=== PATIENT | male | born 1990 | race Caucasian/White ===

== ENCOUNTER 2022-04-04 15:20 | Emergency (ER) | payer OTHER, SELFPAY ==
--- NOTE | ~2022-04-04 | CT_ITS ---
EXAMINATION: CT abdomen pelvis w con DATE: 04/04/2022 16:26 INDICATION: Right lower quadrant pain TECHNIQUE: Computed tomography (CT) of the abdomen and pelvis was performed with 100 mL Omnipaque-350 intravenous contrast. Automated exposure control and iterative reconstruction technique were employe d. The dose-length product was 709.42 mGy-cm. COMPARISON: None. FINDINGS: Respiratory motion limits evaluation of the lower abdomen. Lower thorax: Unremarkable Liver: Normal. Biliary/Gallbladder: Gallbladder is normal. No bile duct dilation. Pancreas: No mass or duct dilation. Spleen: Normal. Adrenals:No mass. Kidneys: No mass, stone, or hydronephrosis. GI tract: No small or large bowel dilation. Normal appendix. Mesentery/Peritoneum: No ascites, mass, or free air. Retroperitoneum: No mass. Pelvis: Pelvic organs are within normal limits. Soft Tissues: Soft tissues and body wall unremarkable. Bones: No acute osseous finding. IMPRESSION: Motion limited examination. Within that constraint, no definite acute abdominopelvic process is detec kirt. Reviewed, dictated and finalized at location K. INSTRUCTOR IMPRESSION: Motion limited examination. Within that constraint, no definite acute abdominop elvic process is detected.
[2022-04-04 15:24] VITALS: BP 152/88; PULSE 95; RESP 16; TEMP 36.5; O2SAT 100
--- NOTE | 2022-04-04 15:30 | PC.NURSE ---
pt verbalizes he is not currently taking his prescribed invega, hydroxizine, or prazosin d/t adverse reactions.
[2022-04-04 15:39] LABS: Basophils Percent Auto 0.4 % (0.2-1.2); Eosinophils Absolute Auto 0.4 K/mm3 (0-0.3); Eosinophils Percent Auto 5.8 % (0-4.4); Hematocrit 40.1 % (42.0-52.0); Hemoglobin 13.8 g/dL (14.0-18.0); Immature Granulocyte Absolute 0.01 K/mm3 (0.00-0.031); Immature Granulocyte Percent A 0.1 % (0-0.5); Lymphocytes Absolute Auto 1.61 K/mm3 (0.9-3.2); Lymphocytes Percent Auto 21.8 % (18.3-44.2); Mean Corpuscular HGB Conc 34.4 g/dl (32-36); Mean Corpuscular Hemoglobin 31.6 pg (26-34); Mean Corpuscular Volume 91.8 fl (80-100); Mean Platelet Volume 8.6 fl (7.4-10.4); Monocytes Absolute Auto 1.2 K/mm3 (0.1-0.6); Monocytes Percent Auto 16.2 % (2.6-8.5); Neutrophils Absolute Auto 4.1 K/mm3 (1.3-6.7); Neutrophils Percent Auto 55.7 % (45.5-73.1); Platelet Count Result 255 k/mm3 (150-375); Red Blood Count 4.37 M/mm3 (4.6-6.20); Red Cell Distribution Width 12.3 % (11.5-14.5); White Blood Count 7.4 K/mm3 (4.5-10.0)
--- NOTE | 2022-04-04 15:51 | ED.ABDPAIN ---
HPI - Abdominal Pain General Chief Complaint: Abdominal Pain Stated Complaint: ?liver failure s/sx Time Seen by Provider: 04/04/22 15:50 Source: patient History of Present Illness HPI narrative: 32 years old white male presented to the ED by ambulance complaining of right abdominal pain for the last 2 weeks, also trouble urinating for the last 1 week. He denies any fever, chills, nausea, vomiting history of hep C, since March 2021, did not get any treatment and he did not follow because of his drug addiction. Now he feels like he need to be treated. Related Data Home Medications Medication Instructions Recorded Confirmed No Home Medications 04/27/19 04/27/19 Allergies Allergy/AdvReac Type Severity Reaction Status Date / Time ciprofloxacin Allergy Unknown Unknown Verified 04/04/22 15:29 metronidazole Allergy Unknown Unknown Verified 04/04/22 15:29 Review of Systems Review of Systems: All systems reviewed & are unremarkable except as noted in HPI and below PMFSH Social History Social History Gender identity (if verbalized by the patient): Male Exam Narrative: General appearance: Well-developed, well-nourished Skin: Normal color Head: Normocephalic, nontraumatic Eyes: Clear conjunctiva ENT: Oropharynx normal, ears normal, nose normal Neck: Supple, nontender Chest and respiratory: Airway patent, no respiratory distress, no accessory muscle use Heart: Regular rate/rhythm Abdomen: Soft, diffuse abdominal tenderness , mainly right upper quadrant, no organomegaly, quiet bowel sounds Vascular: Normal peripheral pulses, normal capillary refill. Neurologic: Alert and oriented ?3, [employer] is normal as tested, no gross motor deficit Course Course Emergency Course: Work-up showed elevated liver enzymes which high likely secondary to hepatitis C. Also hematuria of unknown etiology at this time. Vital Signs Vital signs: Vital Signs Temperature 36.5 C 04/04/22 15:24 Pulse Rate 95 04/04/22 15:24 Respiratory Rate 16 04/04/22 15:24 Blood Pressure 152/88 H 04/04/22 15:24 Pulse Oximetry 100 04/04/22 15:24 Oxygen Delivery Room Air 04/04/22 15:24 Temperature 36.5 C 04/04/22 15:24 Pulse Rate 95 04/04/22 15:24 Respiratory Rate 16 04/04/22 15:24 Blood Pressure 152/88 H 04/04/22 15:24 Pulse Oximetry 100 04/04/22 15:24 Oxygen Delivery Room Air 04/04/22 15:24 MDM - Abdominal Pain Differential Diagnosis Differential diagnosis: Likely acute appendicitis, calculus of kidney, constipation, diverticulitis and pancreatitis Lab Data 04/04/22 15:34 04/04/22 15:34 Labs: Lab Results 04/04/22 04/04/22 04/04/22 Range/Units 15:34 15:34 15:34 WBC 7.4 (4.5-10.0) K/mm3 RBC 4.37 L (4.6-6.20) M/mm3 Hgb 13.8 L D (14.0-18.0) g/dL Hct 40.1 L (42.0-52.0) % MCV 91.8 (80-100) fl MCH 31.6 (26-34) pg MCHC 34.4 (32-36) g/dl RDW 12.3 (11.5-14.5) % Plt Count 255 (150-375) k/mm3 MPV 8.6 (7.4-10.4) fl Immature Gran % (Auto) 0.1 (0-0.5) % Neut % (Auto) 55.7 (45.5-73.1) % Lymph % (Auto) 21.8 (18.3-44.2) % [place] % (Auto) 16.2 H (2.6-8.5) % Eos % (Auto) 5.8 H (0-4.4) % Baso % (Auto) 0.4 (0.2-1.2) % Lymph # (Auto) 1.61 (0.9-3.2) K/mm3 [place] # (Auto) 1.2 H (0.1-0.6) K/mm3 Eos # (Auto) 0.4 H (0-0.3) K/mm3 Baso # (Auto) 0.0 (0.0-0.1) K/mm3 Abs Immat Gran (auto) 0.01 (0.00-0.031) K/mm3 Absolute Neuts (auto) 4.1 (1.3-6.7) K/mm3 Absolute Nucleated RBC 0.0 (0.0-0.012) K/mm3 Nucleated RBC % 0.0 (0.0-0.2) % Sodium 136 L (137-145)
[2022-04-04 15:53] LABS: Albumin Level 4.5 g/dL (3.5-5.1); Alkaline Phosphatase 103 U/L (38-126); Anion Gap 8 mmol/L (8-16); Aspartate Amino Transferase 505 U/L (17-59); Bilirubin,Total 1.7 mg/dL (0.2-1.3); Blood Urea Nitrogen 19 mg/dL (9-20); Calcium 8.7 mg/dL (8.4-10.2); Carbon Dioxide 25 mmol/L (22-30); Chloride 103 mmol/L (98-107); Estimated CRCL calculation 127 ml/min; Estimated Glomerular Filt Rate > 60; Glucose 81 mg/dL (65-110); Lipase 72 U/L (23-300); Potassium 3.9 mmol/L (3.4-5.0); Sodium 136 mmol/L (137-145)
[2022-04-04] MEDS: SODIUM CHLORIDE 0.9% IV 1,000 ML 999 ML IV CONT (15:59)
--- NOTE | 2022-04-04 16:00 | PC.NURSE ---
Patient reports that he only urinates one time per day and is throwing a fit that he was asked for a urine sample. Patient refusing straight cath and reporting that he hates all hospitals.
[2022-04-04 16:34] LABS: Alanine Aminotransferase 1106 U/L (6-50)
--- NOTE | 2022-04-04 17:44 | PC.NURSE ---
patient and patient's girlfriend found to be in the bed at this time sleeping. Patient asked again to attempt to provide a urine sample, again throwing a fit that this would be asked of him. patient then educated that we are running tests to determine where his pain could be coming from and that the EDP would like a urine sample.
[2022-04-04 18:22] LABS: Appearance Urine Slightly Cloudy (Clear); Bilirubin Urine 1+ (Negative); Blood Urine 2+ (Negative); Color Urine Amber (Yellow); Glucose Urine UA Negative (Negative); Ketones Urine 1+ mg/dL (Negative); Leukocyte Esterase Ur Negative LEU/UL (Negative); Nitrate Urine Negative (Negative); Protein Urine 1+ mg/dL (Negative); Specific Grav Ur 1.025 (1.001-1.035); Urobilinogen Urine >=8.0 mg/dL (<2.0)
[2022-04-04 18:28] LABS: Bacteria Urine Trace /hpf; Mucus Urine Rare /lpf; RBC Urine >75 /hpf (0-2)
[2022-04-04 18:39] LABS: Add Urine Microscopic? YES
[2022-04-04 18:49] LABS: Barbiturate Screen Urine Negative (Negative); Benzodiazepines Screen Urine Negative (Negative); Cannabinoid Screen Urine Positive (Negative); Cocaine Screen Urine Negative (Negative); Methadone Screen Urine Negative (Negative); Opiate Screen Urine Negative (Negative); Phencyclidine Screen Urine Negative (Negative)
[2022-04-04 19:14] LABS: Amphetamine Screen Urine Positive (Negative)
--- NOTE | 2022-04-04 19:28 | PC.NURSE ---
Patient was informed of visiting hours of the hospital and was unhappy that his couldnt come to the floor when Patient got a bed. I explained to patient that his visitor could stay in the ER until that time and patient states If she cant come with me, im not staying . This RN informed patient of risks of leaving against medical advice and he states this hospital has gone to the medical centert . I informed provider of patient not wanting to get admitted due to his not being able to come to the floor with him. Patient signed AMA form and verbalized understanding of leaving. Patient states Im just leaving to go to another hospital .
[2022-04-04 19:37] LABS: Influenza A QL RT-PCR Negative (Negative); Influenza B QL RT-PCR Negative (Negative); RSV RNA, RT-PCR Negative (Negative); SARS-CoV-2 RNA PCR Negative
[2022-04-04 20:00] LABS: Hepatitis B Surface Antigen Negative (Negative)
[2022-04-04 20:06] LABS: HAV RESULT Negative (Negative); Hepatitis B Core IgM Result Negative (Negative)
[2022-04-04 20:19] LABS: Hepatitis C Virus Antibody Reactive (Negative)
[2022-04-07 15:52] LABS: Hepatitis C RNA, Quant PCR 1280000 IU/mL
== END 2022-04-04 19:33 | disposition left against medical advice (07) ==
PROVIDERS: Emergency Medicine; Emergency Provider Emergency Medicine; PCP Nurse Practitioner
DX: B19.20 Unspecified viral hepatitis C without hepatic coma (principal); R31.9 Hematuria, unspecified; R74.01 Elevation of levels of liver transaminase levels; Z20.822 Contact with and (suspected) exposure to COVID-19
CPT/HCPCS: 36415; 74177; 80053; 80074; 80307; 81001; 83605; 83690; 85025; 86803; 87522; 87637; 96360; 99284; J7030; Q9967

== ENCOUNTER 2022-10-17 21:11 | Emergency (ER) | payer OTHER, SELFPAY ==
[2022-10-17 21:15] VITALS: BP 161/79; PULSE 73; RESP 15; O2SAT 99
[2022-10-17 23:14] LABS: Basophils Percent Auto 0.5 % (0.2-1.2); Eosinophils Absolute Auto 0.7 K/mm3 (0-0.3); Eosinophils Percent Auto 11.1 % (0-4.4); Hematocrit 41.4 % (42.0-52.0); Hemoglobin 14.1 g/dL (14.0-18.0); Immature Granulocyte Absolute 0.02 K/mm3 (0.00-0.031); Immature Granulocyte Percent A 0.3 % (0-0.5); Lymphocytes Absolute Auto 2.26 K/mm3 (0.9-3.2); Mean Corpuscular HGB Conc 34.1 g/dl (32-36); Mean Corpuscular Hemoglobin 31.3 pg (26-34); Mean Corpuscular Volume 91.8 fl (80-100); Mean Platelet Volume 8.8 fl (7.4-10.4); Monocytes Absolute Auto 0.7 K/mm3 (0.1-0.6); Monocytes Percent Auto 10.4 % (2.6-8.5); Neutrophils Absolute Auto 2.6 K/mm3 (1.3-6.7); Neutrophils Percent Auto 41.7 % (45.5-73.1); Platelet Count Result 232 k/mm3 (150-375); Red Blood Count 4.51 M/mm3 (4.6-6.20); Red Cell Distribution Width 12.3 % (11.5-14.5); White Blood Count 6.3 K/mm3 (4.5-10.0)
[2022-10-17 23:24] LABS: Acetaminophen < 10 ug/mL (10-30); Ethanol < 10 mg/dL (<10); Salicylate < 1.0 mg/dL (2-20)
[2022-10-17 23:25] LABS: Alanine Aminotransferase 54 U/L (6-50); Albumin Level 3.3 g/dL (3.5-5.1); Alkaline Phosphatase 63 U/L (38-126); Anion Gap 2 mmol/L (8-16); Aspartate Amino Transferase 41 U/L (17-59); Bilirubin,Total 0.3 mg/dL (0.2-1.3); Blood Urea Nitrogen 10 mg/dL (9-20); Calcium 8.1 mg/dL (8.4-10.2); Carbon Dioxide 27 mmol/L (22-30); Chloride 110 mmol/L (98-107); Estimated Glomerular Filt Rate > 60; Glucose 107 mg/dL (65-110); Potassium 3.8 mmol/L (3.4-5.0); Sodium 139 mmol/L (137-145)
[2022-10-18 00:11] LABS: Appearance Urine Clear (Clear); Bilirubin Urine Negative (Negative); Blood Urine Negative (Negative); Color Urine Yellow (Yellow); Glucose Urine UA Negative (Negative); Ketones Urine Negative (Negative); Leukocyte Esterase Ur Negative LEU/UL (Negative); Nitrate Urine Negative (Negative); Protein Urine Negative (Negative); Specific Grav Ur 1.017 (1.001-1.035)
--- NOTE | 2022-10-18 00:14 | ED.GENADULT ---
HPI - General Adult General Chief complaint: Psychiatric Symptoms <Luis Montano MD - Last Filed: 10/18/22 07:29> Stated complaint: DOES NOT FEEL SAFE <Luis Montano MD - Last Filed: 10/18/22 07:29> Time Seen by Provider: 10/17/22 22:07 <Luis Montano MD - Last Filed: 10/18/22 07:29> History of Present Illness HPI narrative: This is a 32-year-old schizophrenic with a methamphetamine use disorder presenting to ED for psychiatric evaluation. Patient states that he does not feel safe. He is feels that he is being threatened by old friends, family and people that he does not even know. His mother is telling him that it is all in his head. The patient is continuing to use IV methamphetamines. Patient is denying homicidal/suicidal Ideations or hallucinations. he is not compliant with his psych medications. He denies any physical complaints at this time. <Luis Montano MD - Last Filed: 10/18/22 07:29> Related Data Home medications: Home Medications Medication Instructions Recorded Confirmed No Home Medications 04/27/19 1219 <Luis Montano MD - Last Filed: 10/18/22 07:29> Allergies/adverse reactions: Allergies Allergy/AdvReac Type Severity Reaction Status Date / Time ciprofloxacin Allergy Unknown Unknown Verified 1204 15:29 metronidazole Allergy Unknown Unknown Verified 04/04/22 15:29 <Luis Montano MD - Last Filed: 10/18/22 07:29> [facility] Past Medical History Medical History: Medical History Methamphetamine abuse Schizophrenia <Luis Montano MD - Last Filed: 10/18/22 07:29> Social History Social History: Social History Substance use type: amphetamines and methamphetamine Gender identity (if verbalized by the patient): Male <Luis Montano MD - Last Filed: 10/18/22 07:29> Exam Narrative: APPEARANCE: No apparent distress. Head: atraumatic. EYES: EOMI, NOSE: Atraumatic NECK: Trachea midline RESPIRATORY: No increased rate of breathing , clear to auscultation CARDIOVASCULAR: RRR, ABDOMINAL: Non-distended MUSCULOSKELETAl: No obvious deformities NEURO: Alert. Moving 4/4 extremities SKIN:: Warm, dry. Normal color PSYCHIATRIC: Normal affect <Luis Montano MD - Last Filed: 10/18/22 07:29> Course Course Emergency Course: Patient resting comfortably. Reevaluated by crisis. Contracted for safety. Discharge home. <Graham Cornelius MD - Last Filed: 10/18/22 10:13> Vital Signs Vital signs: Vital Signs Pulse Rate 73 10/17/22 21:15 Respiratory Rate 15 10/17/22 21:15 Blood Pressure 161/79 H 10/17/22 21:15 Pulse Oximetry 99 10/17/22 21:15 Oxygen Delivery Room Air 10/17/22 21:15 Pulse Rate 71 10/18/22 09:14 Respiratory Rate 14 10/18/22 09:14 Blood Pressure 129/77 10/18/22 09:14 Pulse Oximetry 100 10/18/22 09:14 Oxygen Delivery Room Air 10/17/22 21:15 <Luis Montano MD - Last Filed: 10/18/22 07:29> Vital Signs Pulse Rate 73 10/17/22 21:15 Respiratory Rate 15 10/17/22 21:15 Blood Pressure 161/79 H 10/17/22 21:15 Pulse Oximetry 99 10/17/22 21:15 Oxygen Delivery Room Air 10/17/22 21:15 Pulse Rate 71 10/18/22 09:14 Respiratory Rate 14 10/18/22 09:14 Blood Pressure 129/77 10/18/22 09:14 Pulse Oximetry 100 10/18/22 09:14 Oxygen Delivery Room Air 10/17/22 21:15 <Graham Cornelius MD - Last Filed: 10/18/22 10:13> Medical Decision Making MDM Narrative Medical decision making narrative: -Presentation: 32-year-old male with schizophrenia and methamphetamine use disorder presenting with paranoid delusions. -DDX includes but is not limited to: Schizophrenia, substance use disorder -Co-morbidities complicating care: schizophrenia, methamphetamine use -Social determinants of health: unemployed -External
[2022-10-18 00:22] LABS: Add Urine Microscopic? NO
[2022-10-18 00:33] LABS: Barbiturate Screen Urine Negative (Negative); Benzodiazepines Screen Urine Negative (Negative)
[2022-10-18 00:35] LABS: Cannabinoid Screen Urine Negative (Negative); Cocaine Screen Urine Negative (Negative); Methadone Screen Urine Negative (Negative); Opiate Screen Urine Negative (Negative); Phencyclidine Screen Urine Negative (Negative)
[2022-10-18 01:09] LABS: Amphetamine Screen Urine Positive (Negative)
[2022-10-18 01:19] LABS: Influenza A QL RT-PCR Negative (Negative); Influenza B QL RT-PCR Negative (Negative); RSV RNA, RT-PCR Negative (Negative); SARS-CoV-2 RNA PCR Negative (Negative)
--- NOTE | 2022-10-18 08:03 | PC.NURSE ---
Notified Crisis that patient had a change to Stone scale and is now mod risk. Crisis will be arriving in 90 minutes.
[2022-10-18 09:14] VITALS: BP 129/77; PULSE 71; RESP 14; O2SAT 100
== END 2022-10-18 10:29 | disposition home or self-care (01) ==
PROVIDERS: Emergency Provider Emergency Medicine; PCP Nurse Practitioner
DX: F20.9 Schizophrenia, unspecified (principal); F15.10 Other stimulant abuse, uncomplicated; Z20.822 Contact with and (suspected) exposure to COVID-19
CPT/HCPCS: 36415; 80053; 80307; 81003; 84443; 85025; 87637; 99284

== ENCOUNTER 2023-03-27 06:39 | Emergency (ER) | payer OTHER, SELFPAY ==
--- NOTE | ~2023-03-27 | CT_ITS ---
EXAMINATION: CT abdomen pelvis w con INDICATION: Right lower quadrant abdominal pain TECHNIQUE: Computed tomographic images of the abdomen and pelvis were obtained after the administrati on of 100 cc of Omnipaque 350 intravenous contrast. The dose-length product (DLP) was 1434.90 mGy-cm. Automated exposure control and iterative reconstruction technique were employed. COMPARISON: 04/04/2022 FINDINGS: Minimal dependent atelectasis is present in the lung bases. The heart size is normal. Mild bilateral gynecomastia is noted. The liver, spleen, pancreas, gallbladder, and adrenal glands are nor mal. The kidneys are unremarkable. No pathologically enlarged abdominal or pelvic lymph nodes are pedro ntified. No free intraperitoneal gas or evidence of bowel obstruction. There is mild wall thickening of the colon from the hepatic flexure through the sigmoid colon. The visualized osseous structures ar e unremarkable. IMPRESSION: 1. Mild colitis from the hepatic flexure through the sigmoid colon. Reviewed, dictated and finalized at location F. I[employer] LABORER
[2023-03-27 06:40] VITALS: BP 131/78; PULSE 48; RESP 14; TEMP 36.7; O2SAT 100
[2023-03-27 07:40] LABS: Basophils Percent Auto 0.5 % (0.2-1.2); Eosinophils Absolute Auto 0.6 K/mm3 (0-0.3); Eosinophils Percent Auto 7.5 % (0-4.4); Hematocrit 42.9 % (42.0-52.0); Hemoglobin 14.9 g/dL (14.0-18.0); Immature Granulocyte Absolute 0.04 K/mm3 (0.00-0.031); Immature Granulocyte Percent A 0.5 % (0-0.5); Lymphocytes Absolute Auto 1.98 K/mm3 (0.9-3.2); Lymphocytes Percent Auto 23.2 % (18.3-44.2); Mean Corpuscular HGB Conc 34.7 g/dl (32-36); Mean Corpuscular Hemoglobin 30.8 pg (26-34); Mean Corpuscular Volume 88.6 fl (80-100); Mean Platelet Volume 8.8 fl (7.4-10.4); Monocytes Absolute Auto 0.6 K/mm3 (0.1-0.6); Neutrophils Absolute Auto 5.3 K/mm3 (1.3-6.7); Neutrophils Percent Auto 61.3 % (45.5-73.1); Platelet Count Result 194 k/mm3 (150-375); Red Blood Count 4.84 M/mm3 (4.6-6.20); Red Cell Distribution Width 11.8 % (11.5-14.5); White Blood Count 8.6 K/mm3 (4.5-10.0)
[2023-03-27 07:41] LABS: Appearance Urine Clear (Clear); Bilirubin Urine Negative (Negative); Blood Urine Negative (Negative); Color Urine Yellow (Yellow); Glucose Urine UA Negative (Negative); Ketones Urine Negative (Negative); Leukocyte Esterase Ur Negative LEU/UL (Negative); Nitrate Urine Negative (Negative); Protein Urine Negative (Negative); Specific Grav Ur 1.027 (1.001-1.035); pH Urine 5.5 (5.0-9.0)
[2023-03-27 07:48] LABS: Add Urine Microscopic? NO
[2023-03-27 07:51] LABS: Alanine Aminotransferase 43 U/L (6-50); Albumin Level 4.1 g/dL (3.5-5.1); Alkaline Phosphatase 72 U/L (38-126); Anion Gap 9 mmol/L (8-16); Aspartate Amino Transferase 32 U/L (17-59); Bilirubin,Total 0.6 mg/dL (0.2-1.3); Blood Urea Nitrogen 17 mg/dL (9-20); Calcium 9.2 mg/dL (8.4-10.2); Carbon Dioxide 24 mmol/L (22-30); Chloride 106 mmol/L (98-107); Estimated CRCL calculation 125 ml/min; Estimated Glomerular Filt Rate > 60; Glucose 109 mg/dL (65-110); Lipase 105 U/L (23-300); Potassium 3.9 mmol/L (3.4-5.0); Sodium 139 mmol/L (137-145)
[2023-03-27] MEDS: SODIUM CHLORIDE 0.9% IV 1,000 ML 999 ML IV CONT (09:26)
[2023-03-27] MEDS: ONDANSETRON INJ 4 MG/2 ML VIAL IV PUSH (09:26)
--- NOTE | 2023-03-27 09:34 | ED.ABDPAIN ---
HPI - Abdominal Pain General Chief Complaint: Abdominal Pain Stated Complaint: abd pain, N/V/D Time Seen by Provider: 03/27/23 08:38 Source: patient, RN notes reviewed and old records reviewed Mode of arrival: ambulatory Limitations: no limitations History of Present Illness HPI narrative: This is a 33 year old male who presents for evaluation of right side abdominal pain. Patient states he developed multiple episodes of diarrhea for 3 days and he has continued to have it today. He denies nausea and vomiting last night. He also reports having right side abdominal pain that is mostly with having a bowel movement. He describes his pain has sharp and he states it is currently resolved. His last episode of pain was 1 hour ago. He has congestion . Denies fever , chills. Denies sick contacts. He reports his girlfriend ate similar food but they have not been ill. MD elicited complaint: abdominal pain Related Data Allergies Allergy/AdvReac Type Severity Reaction Status Date / Time ciprofloxacin Allergy Unknown Unknown Verified 03/27/23 07:21 metronidazole Allergy Unknown Unknown Verified 03/27/23 07:21 Review of Systems Constitutional: Constitutional: Denies weakness ENT: Reports nasal congestion Cardiovascular: Cardiovascular: Denies syncope, Denies rapid heart rate, Denies irregular heart rhythm, Denies leg edema and Denies dyspnea Respiratory: Respiratory: Denies chest congestion, Denies hemoptysis, Denies excessive phlegm production and Denies dyspnea Gastrointestinal: Gastrointestinal: Reports abdominal pain, Denies hematochezia, Reports diarrhea, Reports nausea and Reports vomiting Genitourinary: Genitourinary: Denies hematuria, Denies dysuria, Denies penile discharge and Denies testicular pain Musculoskeletal: Musculoskeletal: Denies joint swelling, Denies loss of height and Denies muscle weakness Neurologic: Denies syncope, Denies focal weakness and Denies weakness PMFSH Past Medical History Medical History Methamphetamine abuse Schizophrenia Social History Social History Substance use type: amphetamines and methamphetamine Gender identity (if verbalized by the patient): Male Exam Const: General: alert Nutritional Appearance: well nourished Orientation/consciousness: patient oriented x3 Limitations: no limitations HENMT: Head: normal to inspection Mouth: Yes Normal oral and palatal mucosa present, Yes lip normal and Yes moist mucous membranes Throat: posterior oropharynx normal and uvula midline Eyes: EOM: EOMs intact bilaterally Neck: Neck: normal visual inspection Chest: Chest palpation & inspection: normal inspection of the chest Resp: Effort & Inspection: normal respiratory effort Auscultation: clear to auscultation bilaterally Cardio: Rate: regular rate Rhythm: regular rhythm Heart sounds: no murmurs GI: GI Palp: Yes Soft to palpation, No Tenderness to palpation present (GI), No Guarding due to palpation present (GI) and No Rigid due to palpation Auscultation: normal bowel sounds Back/Spine/Pelvis: Back: no CVA tenderness Skin: General skin exam: normal color Rashes: no rashes Wounds: no wounds Neuro: General: patient oriented x3, moves all extremities and CN's II-XI intact bilaterally Extrem: General: normal to inspection Psych: Mental Status: mental status grossly normal Affect: normal affect Attitude: cooperative Course Reevaluation(s) Reevaluation #1: PAtient feels better and he is ready for discharge. Date: 03/27/23 Time: 11:40 Vital Signs Vital signs: Vital Signs Temperature 98.0 F 03/27/23 06:40 Pulse Rate 48 L 03/27/23 06:40 Respiratory Rate 14 03/27/23 06:40 Blood Pressure 131/78 03/27/23 06:40 Pulse Oximetry 100 03/27/23 06:40 Oxygen Delivery Room Air 03/27/23 06:40 Temperature 98.0 F 03/27/23 06:40 Pulse Rate 86 11/2
[2023-03-27 10:05] VITALS: BP 129/76; PULSE 84; RESP 20; O2SAT 100
[2023-03-27 10:11] LABS: Influenza A QL RT-PCR Negative (Negative); Influenza B QL RT-PCR Negative (Negative); SARS-CoV-2 RNA PCR Negative (Negative)
[2023-03-27 11:50] VITALS: BP 142/88; PULSE 86; RESP 16; O2SAT 97
== END 2023-03-27 11:50 | disposition home or self-care (01) ==
PROVIDERS: Emergency Provider General Practice; PCP Nurse Practitioner
DX: K52.9 Noninfective gastroenteritis and colitis, unspecified (principal); Z20.822 Contact with and (suspected) exposure to COVID-19
CPT/HCPCS: 36415; 74177; 80053; 81003; 83690; 85025; 87636; 96361; 96374; 99284; J2405; J7030; Q9967

== ENCOUNTER 2023-05-07 10:30 | Emergency (ER) | payer OTHER, SELFPAY ==
[2023-05-07 10:45] VITALS: BP 148/103; PULSE 61; RESP 16; TEMP 37.1; O2SAT 100
--- NOTE | 2023-05-07 10:57 | ED.NAVMDI ---
HPI - Nausea/Vomiting/Diarrhea General Chief complaint: Nausea/Vomiting/Diarrhea Stated complaint: Sinus Time Seen by Provider: 05/07/23 11:00 Source: patient and RN notes reviewed Mode of arrival: ambulatory Limitations: no limitations History of Present Illness HPI Narrative: 33-year-old male presents with concern for nausea, vomiting. He reports his last vomiting episode was yesterday. Reports he missed work and needs work note. He reports he had colitis in March and took an antibiotic within anti emetic. He reports the nausea never really went away. He denies abdominal pain, fever. MD elicited complaint: nausea and vomiting Related Data Home Medications Medication Instructions Recorded Confirmed gabapentin 100 mg tablet 100 mg PO HS 05/07/23 05/07/23 mirtazapine 7.5 mg tablet 7.5 mg PO HS 05/07/23 05/07/23 oxcarbazepine 300 mg tablet mg 05/07/23 paliperidone 1.5 mg 3 mg PO QAM 05/07/23 05/07/23 tablet,extended release 24 hr prazosin 1 mg capsule mg 05/07/23 Allergies Allergy/AdvReac Type Severity Reaction Status Date / Time ciprofloxacin Allergy Unknown Unknown Verified 05/07/23 10:54 metronidazole Allergy Unknown Unknown Verified 05/07/23 10:54 Review of Systems Review of Systems: CONSTITUTIONAL: Denies malaise, chills, sweats, or fever. ENT: Denies rhinorrhea, congestion, sinus pain, otalgia or sore throat. CARDIOVASCULAR: Denies chest pain, palpitations, or edema. RESPIRATORY: Denies cough or dyspnea. GASTROINTESTINAL: Denies abdominal pain. Reports nausea, vomiting, loose stools GENITOURINARY: Denies dysuria or hematuria. MUSCULOSKELETAL: Denies myalgia. NEUROLOGIC: Denies headache. All systems reviewed & are unremarkable except as noted in HPI and below PMFSH Past Medical History Medical History Methamphetamine abuse Schizophrenia Social History Social History Substance use type: amphetamines and methamphetamine Gender identity (if verbalized by the patient): Male Comments At time of signature, agree with nursing past medical, surgical, social and family history. There is no relevant family history pertinent to the presenting complaint Exam Narrative: GENERAL: Well-appearing, well-nourished, and in no acute distress. HEAD: Normocephalic, atraumatic. EYES: PERRLA, conjunctivae clear, and EOMI. ENT: Nares clear, turbinates pink, no rhinorrhea or epistaxis. Mucous membranes moist. Oropharynx without edema, erythema, or lesions. Tonsils not enlarged and without exudate. NECK: Supple. No lymphadenopathy CHEST: Speaks in full sentences. No respiratory distress. HEART: Regular rate and rhythm. ABDOMEN: Soft, flat, nondistended, nontender. No guarding, rebound tenderness, or rigidity. No pulsatile masses. Bowel sounds present in all four quadrants. No organomegaly. Negative Johnson?s sign. No periumbilical tenderness. SKIN: Warm, dry, no rash. NEURO: Alert and oriented x3. PSYCH: Normal mood and affect Course Course Emergency Course: Patient is aware of diagnosis, understands and agrees to treatment plan. Anticipatory guidance given. Patient agrees to follow-up as directed and is aware of reasons to seek care at the emergency department. Portions of this record may have been created with voice recognition software Level of Care: Express Care Visit Vital Signs Vital signs: Vital Signs Temperature 98.7 F 05/07/23 10:45 Pulse Rate 61 05/07/23 10:45 Respiratory Rate 16 05/07/23 10:45 Blood Pressure 148/103 H 05/07/23 10:45 Pulse Oximetry 100 05/07/23 10:45 Oxygen Delivery Room Air 05/07/23 10:45 Temperature 98.7 F 05/07/23 10:45 Pulse Rate 61 05/07/23 10:45 Respiratory Rate 16 05/07/23 10:45 Blood Pressure 148/103 H 05/07/23 10:45 Pulse Oximetry 100 05/07/23 10:45 Oxygen Delivery Room Air 05/07/23 10:45 Reviewed.
[2023-05-07 11:25] VITALS: BP 138/95
== END 2023-05-07 11:25 | disposition home or self-care (01) ==
PROVIDERS: Emergency Provider Nurse Practitioner; PCP Nurse Practitioner
DX: R11.2 Nausea with vomiting, unspecified (principal)
CPT/HCPCS: 87426; 87804; 99213; C9803; G0463

== ENCOUNTER 2023-05-10 15:51 | Emergency (ER) | payer OTHER, SELFPAY ==
[2023-05-10 15:59] VITALS: BP 156/90; PULSE 60; RESP 16; TEMP 36.8; O2SAT 98
--- NOTE | 2023-05-10 16:00 | ED.NAVMDI ---
HPI - Nausea/Vomiting/Diarrhea General Chief complaint: Nausea/Vomiting/Diarrhea Stated complaint: Vomiting Time Seen by Provider: 05/10/23 16:00 Source: patient Mode of arrival: ambulatory Limitations: no limitations History of Present Illness HPI Narrative: Keegan is a 33-year-old male patient presenting to the clinic today with complaints of nausea and vomiting also having some loose stools. He reports symptoms started 3-4 days ago. Was seen in the clinic 2-3 days ago and treated with some Zofran. Was requesting a work note at that time. He states he woke up this morning and vomited twice and had some loose stool. He called off work and is requesting a work note for today. He denies any fever, chills, or body aches. States that weeks ago he was being treated for colitis. He denies any abdominal pain at this time Related Data Home Medications Medication Instructions Recorded Confirmed gabapentin 100 mg tablet 100 mg PO HS 05/07/23 05/10/23 mirtazapine 7.5 mg tablet 7.5 mg PO HS 05/07/23 05/10/23 paliperidone 1.5 mg 3 mg PO QAM 05/07/23 05/10/23 tablet,extended release 24 hr oxcarbazepine 300 mg tablet 300 mg PO DAILY 05/10/23 05/10/23 prazosin 1 mg capsule 1 mg PO DAILY 05/10/23 05/10/23 Allergies Allergy/AdvReac Type Severity Reaction Status Date / Time ciprofloxacin Allergy Unknown Unknown Verified 05/10/23 16:02 metronidazole Allergy Unknown Unknown Verified 05/10/23 16:02 Review of Systems Review of Systems: Pertinent positives per HPI. Patient denies any fever, chills, rash, headache, visual changes, dizziness, cough, runny nose, sore throat, shortness of breath, chest pain, palpitations, constipation, abdominal pain, or any urinary issues. [facility] Past Medical History Medical History Methamphetamine abuse Schizophrenia Social History Social History Substance use type: amphetamines and methamphetamine Gender identity (if verbalized by the patient): Male Comments At the time of my signature, I reviewed and agree with the nursing past medical, surgical, social, and family history. There is no relevant family history pertinent to the patient complaint. Exam Narrative: General: Well-developed, well nourished, in no apparent distress. Head: Normocephalic, atraumatic. Cardio: Regular rate and rhythm, s1 and s2 normal, no murmur appreciated. Resp: Clear to auscultation bilaterally, no rhonchi, rales, wheezing or rubs. Abdomen: Soft, pliable, bowel sounds present in all quadrants, non-tender to palpation, no organomegly, no CVAT tenderness. Course Course Emergency Course: Portions of this record may have been created with voice recognition software. Level of Care: Express Care Visit Vital Signs Vital signs: Vital signs reviewed MDM - Nausea/Vomiting/Diarrhea MDM Narrative Medical decision making narrative: At the time of visit patient is resting comfortably on the exam table. Patient appears to be nontoxic. I suspect patient has gastroenteritis. Work note was given. Patient still has some Zofran left over. Supportive measures were discussed with the patient and they voiced understanding discharge instructions and agrees to treatment plan. Return precautions reviewed Differential Diagnosis Differential diagnosis: Likely traveler's diarrhea, food poisoning, gastroenteritis, clostridium difficile infection, drug-induced nausea and vomiting and dehydration Discharge Plan Discharge Clinical Impression: Gastroenteritis Patient Disposition: Home, Self-Care Condition: Stable Instructions: Antibiotic Form, Gastroenteritis (ED) Additional Instructions: Continue current medications Increase fluids and stay well hydrated Tylenol/motrin for pain/fever Flonase and OTC antihistamines as directed Vicks vapor rub to open sinuses Sinus rinses for congestion Cepa
== END 2023-05-10 16:11 | disposition home or self-care (01) ==
PROVIDERS: Emergency Provider Nurse Practitioner Family; PCP Nurse Practitioner
DX: K52.9 Noninfective gastroenteritis and colitis, unspecified (principal); Z79.899 Other long term (current) drug therapy
CPT/HCPCS: 99211; G0463

== ENCOUNTER 2024-05-04 09:59 | Emergency (ER) | payer MEDICAID, SELFPAY ==
[2024-05-04 10:16] VITALS: BP 138/83; PULSE 84; RESP 16; TEMP 37.1; O2SAT 95
[2024-05-04 10:48] LABS: EDCOVIDSCREEN Negative (Negative); EDINFLUASCREEN Negative (Negative); EDINFLUBSCREEN Negative (Negative)
--- NOTE | 2024-05-04 11:07 | ED.URI ---
HPI - URI/Sore Throat General Chief Complaint: Upper Respiratory Infection Stated Complaint: cough/shortness of breath at night Time Seen by Provider: 05/04/24 11:07 Source: patient, RN notes reviewed and old records reviewed Mode of arrival: ambulatory Limitations: no limitations History of Present Illness HPI Narrative: Patient presents with 3 days hacking cough. He denies any fever, chills, sweats. He reports that cough is worse night. He has had some postnasal drainage. He has an albuterol inhaler that he has from a past illness, says that this has been helpful. He denies any other complaints other than being more tired than normal. Says that he is not sleeping well secondary to cough. He is not in any distress at this time Related Data Home Medications ?Medication ?Instructions ?Recorded ?Confirmed ?Last Taken ?Type gabapentin 100 mg tablet 100 mg PO HS 05/07/23 05/10/23 Unknown History mirtazapine 7.5 mg tablet 7.5 mg PO HS 05/07/23 05/10/23 Unknown History paliperidone 1.5 mg 3 mg PO QAM 05/07/23 05/10/23 Unknown History tablet,extended release 24 hr oxcarbazepine 300 mg tablet 300 mg PO DAILY 05/10/23 05/10/23 Unknown History prazosin 1 mg capsule 1 mg PO DAILY 05/10/23 05/10/23 Unknown History naltrexone microspheres 380 mg 380 mg IM ONCE 05/04/24 05/04/24 Unknown History intramuscular suspension,extended release (Vivitrol) Allergies Allergy/AdvReac Type Severity Reaction Status Date / Time ciprofloxacin Allergy Unknown Unknown Verified 05/04/24 10:19 metronidazole Allergy Unknown Unknown Verified 05/04/24 10:19 Review of Systems Review of Systems: All systems reviewed & are unremarkable except as noted in HPI and below Constitutional: Constitutional: Reports no additional constitutional complaints ENT: Reports system reviewed and no additional complaints, except as documented and Reports post nasal drip Cardiovascular: Cardiovascular: Reports no additional cardiovascular complaints Respiratory: Respiratory: Reports no additional respiratory complaints and Reports cough Gastrointestinal: Gastrointestinal: Reports no additional gastrointestinal complaints [facility] Past Medical History Medical History Methamphetamine abuse Schizophrenia Social History Social History Substance use type: amphetamines and methamphetamine Gender identity (if verbalized by the patient): Male Comments At the time of my signature, I reviewed and agree with the nursing past medical, surgical, social, and family history. There is no relevant family history pertinent to the patient complaint. Exam Const: General: cooperative, no acute distress, alert and awake Orientation/consciousness: oriented to person, oriented to place and oriented to time HENMT: Head: normal to inspection Resp: Effort & Inspection: normal respiratory effort and able to speak in complete sentences Auscultation: clear to auscultation bilaterally, no crackles, no rales, no rhonchi and no wheezes Cardio: Palpation: normal PMI Rate: regular rate Rhythm: regular rhythm Heart sounds: S1 normal heart sound present and S2 normal heart sound present Neuro: General: oriented to person, oriented to place and oriented to time Cranial nerves: Yes CN's II-XII intact bilaterally Psych: Appearance: grossly normal Thought process: Normal thought process present Insight: Good insight present (Psych) Judgement: Good judgement present (Psych) Course Course Level of Care: Express Care Visit Vital Signs Vital signs: Vital Signs Temperature 98.7 F 05/04/24 10:16 Pulse Rate 84 05/04/24 10:16 Respiratory Rate 16 05/04/24 10:16 Blood Pressure 138/83 05/04/24 10:16 Pulse Oximetry 95 05/04/24 10:16 Oxygen Delivery Room Air 05/04/24 10:16 Temperature 98.7 F 05/04/24 10:16 Pulse Rate 84 05/04/24 10:16 Respiratory Rate 16 05/04/24 10:16 Blood Pressure 138/83 05/04/24 10:16 Pulse Oximetry 95 05/04/24 10:16 Oxygen Delivery Room Air 05/04/24 10:16 Reviewed MDM - URI/Sore Throat MDM Narrative Medical decision making narrative: Negative COVID, negative flu. Reassuring physical exam. Treat symptomatically. Patient nontoxic appearing and stable for discharge home. Discharge instructions reviewed with patient, as well as provided in writing per nursing staff. The instructions also include specific and strict return/GO TO THE ER as well as f/u information. All questions have been answered, and the patient deny any further questions with discharge and discharge plan. Some parts of this dictation were generated by voice recognition software and may contain typographical and/or grammatical inaccuracies. Differential Diagnosis Differential diagnosis: Likely upper respiratory infection, otitis media, sinusitis, viral infection, bronchitis and influenza Medical Records Attestation: I reviewed the patient's medical records. Lab Data Attestation: I reviewed the patient's lab results. Labs: Lab Results 05/04/24 Range/Units 10:28 POC Influenza A Ag Negative (Negative) POC Influenza B Ag Negative (Negative) POC SARS CoV-2 Ag Negative (Negative) Discharge Plan Discharge Clinical Impression: Upper respiratory infection Patient Disposition: Home, Self-Care Condition: Stable Instructions: Antibiotic Form, Cold Symptoms (ED) Additional Instructions: Take medications as prescribed. Follow-up with primary care provider. Emergency department for new or worse symptoms Patient Language: American Prescriptions: New benzonatate 200 mg capsule 200 mg PO TID PRN (Reason: cough) Qty: 30 0RF albuterol sulfate [Ventolin HFA] 90 mcg/actuation HFA aerosol inhaler 2 puff inhalation QID PRN (Reason: shortness of breath or wheezing) Qty: 8.5 0RF No Action Vivitrol 380 mg suspension,extended rel recon 380 mg IM ONCE ondansetron 4 mg tablet,disintegrating 4 mg PO Q8H PRN (Reason: nausea and vomiting) Qty: 10 0RF mirtazapine 7.5 mg Tablet 7.5 mg PO HS paliperidone [Invega] 1.5 mg Tablet Extended Release 24 Hr 3 mg PO QAM gabapentin 100 mg Tablet 100 mg PO HS prazosin 1 mg capsule 1 mg PO DAILY oxcarbazepine 300 mg tablet 300 mg PO DAILY Follow-up/Referrals: [facility],Elijah Maldonado, PERSONALIZED LIVING ASSISTANT [Primary Care Provider] - 2 Weeks Stand Alone Forms: Work/School Release IP Time of Disposition: 11:13
== END 2024-05-04 11:25 | disposition home or self-care (01) ==
PROVIDERS: Emergency Provider Nurse Practitioner Family; PCP Nurse Practitioner
DX: J06.9 Acute upper respiratory infection, unspecified (principal); F20.9 Schizophrenia, unspecified; F15.10 Other stimulant abuse, uncomplicated; Z20.822 Contact with and (suspected) exposure to COVID-19
CPT/HCPCS: 87426; 87804; 99213; G0463